=== PATIENT | female | born 1990 | race African-American/Black ===

== ENCOUNTER 2020-07-09 05:10 | Inpatient (IN) | payer OTHER, MEDICAID ==
[~2020-07-09] VITALS: Ht 162.6 cm; Wt 70.3 kg
[2020-07-09] MEDS ORDERED: SODIUM CHLORIDE 0.9% 1000ML BAG (SEPSIS BOLUS) IV ONE (06:15)
[2020-07-09] MEDS ORDERED: MORPHINE SULFATE 4 MG/ML CPJ (NOT FOR IM USE) IV ONE (06:30)
[2020-07-09 06:41] LABS: HEMATOCRIT. 38.2 % (36.0-48.0); HEMOGLOBIN. 12.4 g/dL (12.0-16.0); MEAN CORPUSCULAR HEMOGLOBIN 31.6 pg (28.0-32.0); MEAN CORPUSCULAR VOLUME 97.3 fL (81.0-99.0); MEAN PLATELET VOLUME 9.2 fl (7.4-10.4); PLATELET 86 x1000/uL (130-400); RED BLOOD CELL COUNT 3.93 mill/uL (4.2-5.4); RED CELL DISTRIBUTION WIDTH 15.6 % (11.6-14.6)
[2020-07-09 06:45] LABS: CHLORIDE 95 mEq/L (98-107)
[2020-07-09 06:48] LABS: INR 1.2; PROTHROMBIN TIME 12.4 sec (9.6-11.0)
[2020-07-09 07:18] LABS: PLATELET ESTIMATE DECREASED
[2020-07-09] MEDS ORDERED: INSULIN REGULAR (HUMULIN R) UD 100 UNITS/ML SYR IV ONE ×2 (07:30→09:15)
[2020-07-09 07:48] LABS: BG BASE EXCESS -18.3 mmol/L (-2.0-2.0); BG CARBOXYHEMOGLOBIN 0.3 % (0.5-1.5); BG DEOXYHEMOGLOBIN 1.1 % (0.0-5.0); BG HCO3 ACT 8.3 mmol/L (22.0-26.0); BG METHEMOGLOBIN 0.3 % (0.0-1.5); BG OXYGEN SATURATION 98.9 % (92.0-98.5); BG OXYHEMOGLOBIN 98.3 % (94.0-97.0); BG PCO2 22.7 mmHg (35.0-45.0); BG PH 7.181 (7.350-7.450); BG PO2 153.4 mmHg (75.0-100.0); BG SAMPLE SITE RIGHT BRACHIAL; BG TOTAL HEMOGLOBIN 11.8 g/dL (12.0-18.0); BG VENT MODE NASAL CANNULA
[2020-07-09] MEDS ORDERED: INSULIN REGULAR (HUMULIN R) 300UNITS/3ML IV SCH (08:10)
[2020-07-09] MEDS ORDERED: SODIUM CHLORIDE 0.9% 500 ML IV ONE (08:15)
[2020-07-09] MEDS ORDERED: SODIUM CHLORIDE 0.9% 1,000 ML IV ONE (09:15)
[2020-07-09] MEDS ORDERED: LEVOFLOXACIN 500MG PREMIX 100 ML IV ONE (09:30)
[2020-07-09] MEDS ORDERED: INSULIN REGULAR (HUMULIN R) 300UNITS/3ML IV ONE (09:37)
[2020-07-09] MEDS ORDERED: ONDANSETRON HCL 4MG/2ML INJ IV PRN (09:45)
[2020-07-09] MEDS ORDERED: CLONIDINE 0.1MG TABLET PO PRN (09:45)
[2020-07-09] MEDS ORDERED: SODIUM CHLORIDE 0.9% 1,000 ML IV SCH (09:45)
[2020-07-09] MEDS ORDERED: DIPHENHYDRAMINE 50MG/ML VIAL IV PRN (09:45)
[2020-07-09] MEDS ORDERED: LEVOFLOXACIN 500MG PREMIX 100 ML IV SCH (10:00)
[2020-07-09] MEDS ORDERED: ENOXAPARIN 40MG/0.4ML SYR SUBCUT SCH (11:30)
[2020-07-09] MEDS ORDERED: INSULIN REGULAR (DRIP) 100 UNITS in SODIUM CHLORIDE 0.9% 99 ML IV SCH (11:30)
[2020-07-09 11:31] LABS: BG BASE EXCESS -15.1 mmol/L (-2.0-2.0); BG CARBOXYHEMOGLOBIN 0.3 % (0.5-1.5); BG DEOXYHEMOGLOBIN 1.3 % (0.0-5.0); BG HCO3 ACT 11.4 mmol/L (22.0-26.0); BG METHEMOGLOBIN 0.3 % (0.0-1.5); BG OXYGEN SATURATION 98.7 % (92.0-98.5); BG OXYHEMOGLOBIN 98.1 % (94.0-97.0); BG PCO2 28.9 mmHg (35.0-45.0); BG PH 7.213 (7.350-7.450); BG PO2 148.4 mmHg (75.0-100.0); BG SAMPLE SITE RIGHT RADIAL; BG TOTAL HEMOGLOBIN 10.6 g/dL (12.0-18.0); BG VENT MODE NASAL CANNULA
[2020-07-09] MEDS ORDERED: DEXT 5%/0.9% NACL KCL 20MEQ/L 1,000 ML IV SCH (12:45)
[2020-07-09] MEDS: INSULIN REGULAR (DRIP) 100 UNITS in SODIUM CHLORIDE 0.9% 99 ML IV SCH (13:08)
[2020-07-09] MEDS: DEXT 5%/0.9% NACL KCL 20MEQ/L 1,000 ML IV SCH ×2 (13:22→17:00)
[2020-07-09] MEDS: ACETAMINOPHEN 325MG TABLET PO PRN (15:56)
[2020-07-09] MEDS ORDERED: DEXT 5%/0.45% NACL 1000ML 1,000 ML IV SCH (21:00)
[2020-07-09 21:38] VITALS: BP 132/111
[2020-07-09 22:04] VITALS: BP 119/99
[2020-07-09] MEDS: CHLORDIAZEPOXIDE 25MG CAPSULE PO SCH (22:22)
[2020-07-09] MEDS: MORPHINE SULFATE 2 MG/ML CPJ (NOT FOR IM USE) IV PRN (22:22)
[2020-07-09 22:34] VITALS: BP 104/16
[2020-07-09 23:04] VITALS: BP 120/77
[2020-07-09] MEDS: BLOOD SUGAR DIAGNOSTIC STRIP TEST SCH (23:11)
[2020-07-09 23:34] VITALS: BP 116/94
[2020-07-09 23:54] LABS: PHOSPHORUS < 0.1 mg/dL (2.5-4.9)
[2020-07-10] VITALS (98 sets, daily range): BP systolic 44–133; BP diastolic 21–114
[2020-07-10] MEDS: BLOOD SUGAR DIAGNOSTIC STRIP TEST SCH ×9 (00:04→23:00)
[2020-07-10] MEDS: DEXT 5%/0.9% NACL KCL 20MEQ/L 1,000 ML IV SCH ×3 (00:09→08:17)
[2020-07-10] MEDS: LORAZEPAM 2MG/ML CPJ IV PRN (01:28)
[2020-07-10] MEDS ORDERED: SODIUM PHOS,M-BASIC-D-BASIC 30 MM in DEXT 5% WATER 500 ML IV NR ×2 (01:30→22:30)
[2020-07-10 01:35] LABS: BG BASE EXCESS -17.6 mmol/L (-2.0-2.0); BG CARBOXYHEMOGLOBIN 0.4 % (0.5-1.5); BG DEOXYHEMOGLOBIN 13.4 % (0.0-5.0); BG FRACTION INSPIRED OXYGEN 44; BG HCO3 ACT 7.7 mmol/L (22.0-26.0); BG METHEMOGLOBIN 0.2 % (0.0-1.5); BG OXYGEN SATURATION 86.5 % (92.0-98.5); BG PCO2 18.5 mmHg (35.0-45.0); BG PH 7.237 (7.350-7.450); BG PO2 50.7 mmHg (75.0-100.0); BG TOTAL HEMOGLOBIN 12.2 g/dL (12.0-18.0); BG VENT MODE NASAL CANNULA
[2020-07-10] MEDS ORDERED: MAGNESIUM 4 G PREMIX 100 ML IV NR (02:00)
[2020-07-10] MEDS ORDERED: SODIUM BICARBONATE 8.4% 1 MEQ/ML 50ML SYR IV NR ×2 (03:00→11:45)
[2020-07-10] MEDS: MORPHINE SULFATE 2 MG/ML CPJ (NOT FOR IM USE) IV PRN (03:24)
[2020-07-10] MEDS: CHLORDIAZEPOXIDE 25MG CAPSULE PO SCH ×3 (05:04→21:56)
[2020-07-10 05:42] LABS: BASOPHILS % 0.5 % (0.0-2.0); EOSINOPHILS % 0.2 % (0.0-5.0); HEMATOCRIT. 35.3 % (36.0-48.0); HEMOGLOBIN. 11.7 g/dL (12.0-16.0); LYMPHOCYTES % 7.1 % (20.0-50.0); MEAN CORPUSCULAR HEMOGLOBIN 32.3 pg (28.0-32.0); MONOCYTES % 2.9 % (2.0-8.0); NEUTROPHILS % 89.3 % (40.0-76.0); PLATELET 61 x1000/uL (130-400); RED BLOOD CELL COUNT 3.64 mill/uL (4.2-5.4); RED CELL DISTRIBUTION WIDTH 16.2 % (11.6-14.6)
[2020-07-10 06:12] LABS: CREATINE KINASE MB FRACTION 6.3 ng/mL (0.5-3.6)
[2020-07-10] MEDS: INSULIN REGULAR (DRIP) 100 UNITS in SODIUM CHLORIDE 0.9% 99 ML IV SCH (06:56)
[2020-07-10 09:08] LABS: BG BASE EXCESS -17.8 mmol/L (-2.0-2.0); BG CARBOXYHEMOGLOBIN 0.5 % (0.5-1.5); BG FRACTION INSPIRED OXYGEN 99.8; BG HCO3 ACT 9.7 mmol/L (22.0-26.0); BG METHEMOGLOBIN 0.2 % (0.0-1.5); BG OXYGEN SATURATION 87.9 % (92.0-98.5); BG OXYHEMOGLOBIN 87.3 % (94.0-97.0); BG PCO2 28.7 mmHg (35.0-45.0); BG PH 7.147 (7.350-7.450); BG PO2 58.3 mmHg (75.0-100.0); BG SAMPLE SITE LEFT RADIAL; BG TOTAL HEMOGLOBIN 12.3 g/dL (12.0-18.0); BG VENT MODE MASK - NRB
[2020-07-10] MEDS: MIDAZOLAM HCL 100 MG in DEXT 5% WATER 80 ML IV PRN (10:00)
[2020-07-10] MEDS: FENTANYL CITRATE/PF 1,000 MCG in SODIUM CHLORIDE 0.9% 80 ML IV PRN ×2 (10:02→20:05)
[2020-07-10] MEDS: PHENYLEPHRINE 100 MG in DEXT 5% WATER 240 ML IV PRN (10:05)
[2020-07-10] MEDS: METRONIDAZOLE 500 MG PREMIX 100 ML IV SCH ×2 (11:26→21:57)
[2020-07-10] MEDS: SODIUM BICARBONATE 100 MEQ in DEXT 5%/0.2% NACL 1,000 ML IV SCH (11:27)
[2020-07-10 11:37] LABS: BG BASE EXCESS -20.2 mmol/L (-2.0-2.0); BG CARBOXYHEMOGLOBIN 0.4 % (0.5-1.5); BG DEOXYHEMOGLOBIN 7.3 % (0.0-5.0); BG FRACTION INSPIRED OXYGEN 100; BG HCO3 ACT 9.4 mmol/L (22.0-26.0); BG METHEMOGLOBIN 0.3 % (0.0-1.5); BG OXYGEN SATURATION 92.6 % (92.0-98.5); BG PCO2 35.5 mmHg (35.0-45.0); BG PH 7.043 (7.350-7.450); BG PO2 78.2 mmHg (75.0-100.0); BG SAMPLE SITE RIGHT RADIAL; BG TOTAL HEMOGLOBIN 12.6 g/dL (12.0-18.0); BG TOTAL RESPIRATORY RATE 24 b/min; BG VENT MODE VENT - AC
[2020-07-10] MEDS: IPRATROPIUM BROMIDE (0.02%) 0.5MG/2.5ML NEB HHN SCH ×3 (11:51→20:10)
[2020-07-10] MEDS: LEVOFLOXACIN 250MG PREMIX 50 ML IV SCH (12:51)
[2020-07-10] MEDS: AZTREONAM 1 G in DEXTROSE 5% WATER 50 ML IV SCH (16:09)
[2020-07-10 18:31] LABS: CREATINE KINASE MB FRACTION 5.4 ng/mL (0.5-3.6)
[2020-07-10 18:45] LABS: CORTISOL 35.3 ucg/dL
[2020-07-10 18:56] LABS: HEPATITIS B SURFACE ANTIGEN NEGATIVE
[2020-07-10 19:13] LABS: CHLORIDE 115 mEq/L (98-107)
[2020-07-10 19:25] LABS: HEPATITIS A AB IGM NEGATIVE (NEGATIVE)
[2020-07-10 19:37] LABS: PHOSPHORUS 0.9 mg/dL (2.5-4.9)
[2020-07-10 21:04] LABS: CLARITY URINE TURBID (CLEAR); COLOR URINE DARK YELLOW (YELLOW); KETONES URINE NEGATIVE (NEGATIVE); LEUKOCYTE ESTERASE URINE 2+ (NEGATIVE); NITRITE URINE POSITIVE (NEGATIVE); OCCULT BLOOD URINE 3+ (NEGATIVE); PH URINE 5.5 (4.5-8.0); PROTEIN URINE 3+ (NEGATIVE); SPECIFIC GRAVITY URINE 1.019 (1.005-1.030)
[2020-07-10 23:41] LABS: AMYLASE 57 IU/L (25-115)
[2020-07-10 23:45] LABS: CREATINE KINASE MB FRACTION 3.1 ng/mL (0.5-3.6)
[2020-07-11] VITALS (81 sets, daily range): BP systolic 82–130; BP diastolic 48–93
[2020-07-11] MEDS: FENTANYL CITRATE/PF 2,500 MCG in SODIUM CHLORIDE 0.9% 200 ML IV PRN ×2 (00:10→12:03)
[2020-07-11] MEDS: IPRATROPIUM BROMIDE (0.02%) 0.5MG/2.5ML NEB HHN SCH ×6 (00:52→20:05)
[2020-07-11 01:13] LABS: CHLORIDE 115 mEq/L (98-107)
[2020-07-11] MEDS: MIDAZOLAM HCL 100 MG in DEXT 5% WATER 80 ML IV PRN ×2 (01:21→12:05)
[2020-07-11] MEDS: PHENYLEPHRINE 100 MG in DEXT 5% WATER 240 ML IV PRN ×2 (01:31→13:35)
[2020-07-11] MEDS: SODIUM BICARBONATE 100 MEQ in DEXT 5%/0.2% NACL 1,000 ML IV SCH ×2 (02:29→18:18)
[2020-07-11] MEDS: BLOOD SUGAR DIAGNOSTIC STRIP TEST SCH ×5 (02:29→23:49)
[2020-07-11 05:00] LABS: BASOPHILS % 0.6 % (0.0-2.0); EOSINOPHILS % 0.7 % (0.0-5.0); HEMATOCRIT. 30.7 % (36.0-48.0); HEMOGLOBIN. 10.2 g/dL (12.0-16.0); LYMPHOCYTES % 14.5 % (20.0-50.0); MEAN CORPUSCULAR HEMOGLOBIN 31.4 pg (28.0-32.0); MEAN CORPUSCULAR VOLUME 94.8 fL (81.0-99.0); MEAN PLATELET VOLUME 10.5 fl (7.4-10.4); MONOCYTES % 4.5 % (2.0-8.0); NEUTROPHILS % 79.7 % (40.0-76.0); PLATELET 69 x1000/uL (130-400); RED BLOOD CELL COUNT 3.23 mill/uL (4.2-5.4); RED CELL DISTRIBUTION WIDTH 16.3 % (11.6-14.6)
[2020-07-11 05:04] LABS: CHLORIDE 112 mEq/L (98-107); INR 1.2; PARTIAL THROMBOPLASTIN TIME 30.7 sec (23.4-31.0); PROTHROMBIN TIME 12.8 sec (9.6-11.0)
[2020-07-11 05:13] LABS: PHOSPHORUS 3.1 mg/dL (2.5-4.9)
[2020-07-11 05:14] LABS: CREATINE KINASE 58 IU/L (26-192)
[2020-07-11 05:18] LABS: CREATINE KINASE MB FRACTION 2.1 ng/mL (0.5-3.6)
[2020-07-11 05:19] LABS: BETA HYDROXYBUTYRATE 0.1 mMol/L (0.0-0.3)
[2020-07-11] MEDS: AZTREONAM 1 G in DEXTROSE 5% WATER 50 ML IV SCH ×2 (05:32→18:17)
[2020-07-11] MEDS: METRONIDAZOLE 500 MG PREMIX 100 ML IV SCH ×3 (05:32→21:17)
[2020-07-11] MEDS: CHLORDIAZEPOXIDE 25MG CAPSULE PO SCH ×3 (05:32→21:17)
[2020-07-11] MEDS ORDERED: NOREPINEPHRINE 8MG/250ML PMX 250 ML IV PRN (08:30)
[2020-07-11] MEDS ORDERED: NOREPINEPHRINE 8 MG in DEXTROSE 5% WATER 250 ML IV PRN (08:45)
[2020-07-11] MEDS ORDERED: FOLIC ACID 1 MG, THIAMINE HCL 100 MG, MVI, ADULT NO.1 10 ML in DEXT 5%/0.45% NACL 1000M... IV ONE ×4 (09:00)
[2020-07-11] MEDS ORDERED: MAGNESIUM 2 G PREMIX 50 ML IV SCH (09:00)
[2020-07-11] MEDS ORDERED: NOREPINEPHRINE 8 MG in SODIUM CHLORIDE 0.9% 242 ML IV PRN ×2 (09:00)
[2020-07-11] MEDS ORDERED: DEXTROSE 50% WATER 50ML SYRINGE IV PRN (09:15)
[2020-07-11 09:50] LABS: BG BASE EXCESS -8.3 mmol/L (-2.0-2.0); BG CARBOXYHEMOGLOBIN 0.4 % (0.5-1.5); BG DEOXYHEMOGLOBIN 0.7 % (0.0-5.0); BG FRACTION INSPIRED OXYGEN 100; BG HCO3 ACT 17.7 mmol/L (22.0-26.0); BG METHEMOGLOBIN 0.3 % (0.0-1.5); BG OXYGEN SATURATION 99.3 % (92.0-98.5); BG OXYHEMOGLOBIN 98.6 % (94.0-97.0); BG PCO2 37.9 mmHg (35.0-45.0); BG PH 7.286 (7.350-7.450); BG PO2 199.1 mmHg (75.0-100.0); BG SAMPLE SITE LEFT RADIAL; BG TOTAL RESPIRATORY RATE 30 b/min; BG VENT MODE VENT - AC
[2020-07-11] MEDS: LEVOFLOXACIN 250MG PREMIX 50 ML IV SCH (11:24)
[2020-07-11] MEDS: INSULIN LISPRO 100 UNITS/ML SUBCUT SCH ×3 (12:00→23:49)
[2020-07-11] MEDS: ACETAMINOPHEN 325MG TABLET PO PRN (12:05)
[2020-07-11] MEDS: LACTULOSE 20G/30ML UDC PO SCH ×2 (13:45→21:17)
[2020-07-11 18:39] LABS: CREATINE KINASE MB FRACTION 1.5 ng/mL (0.5-3.6)
[2020-07-11 23:22] LABS: CREATINE KINASE MB FRACTION 1.6 ng/mL (0.5-3.6)
[2020-07-12] VITALS (79 sets, daily range): BP systolic 70–144; BP diastolic 45–96
[2020-07-12] MEDS: IPRATROPIUM BROMIDE (0.02%) 0.5MG/2.5ML NEB HHN SCH ×6 (00:12→20:42)
[2020-07-12] MEDS: MIDAZOLAM HCL 100 MG in DEXT 5% WATER 80 ML IV PRN ×2 (00:47→13:24)
[2020-07-12] MEDS: PHENYLEPHRINE 100 MG in DEXT 5% WATER 240 ML IV PRN (02:04)
[2020-07-12] MEDS: FENTANYL CITRATE/PF 2,500 MCG in SODIUM CHLORIDE 0.9% 200 ML IV PRN ×2 (02:25→03:09)
[2020-07-12 04:59] LABS: HEMATOCRIT. 27.3 % (36.0-48.0); HEMOGLOBIN. 9.3 g/dL (12.0-16.0); MEAN CORPUSCULAR HEMOGLOBIN 31.4 pg (28.0-32.0); MEAN CORPUSCULAR VOLUME 92.7 fL (81.0-99.0); MEAN PLATELET VOLUME 9.6 fl (7.4-10.4); PLATELET 61 x1000/uL (130-400); RED BLOOD CELL COUNT 2.95 mill/uL (4.2-5.4); RED CELL DISTRIBUTION WIDTH 16.5 % (11.6-14.6)
[2020-07-12 05:13] LABS: PHOSPHORUS 1.9 mg/dL (2.5-4.9)
[2020-07-12 05:16] LABS: CREATINE KINASE 85 IU/L (26-192)
[2020-07-12 05:37] LABS: CHLORIDE 101 mEq/L (98-107)
[2020-07-12 05:43] LABS: CREATINE KINASE MB FRACTION 1.7 ng/mL (0.5-3.6)
[2020-07-12] MEDS: AZTREONAM 1 G in DEXTROSE 5% WATER 50 ML IV SCH ×2 (05:53→17:30)
[2020-07-12] MEDS: METRONIDAZOLE 500 MG PREMIX 100 ML IV SCH ×3 (05:54→21:19)
[2020-07-12] MEDS: BLOOD SUGAR DIAGNOSTIC STRIP TEST SCH ×4 (05:54→23:51)
[2020-07-12] MEDS: LACTULOSE 20G/30ML UDC PO SCH ×3 (05:54→21:21)
[2020-07-12] MEDS: CHLORDIAZEPOXIDE 25MG CAPSULE PO SCH ×3 (05:54→21:19)
[2020-07-12] MEDS: INSULIN LISPRO 100 UNITS/ML SUBCUT SCH ×4 (05:54→23:51)
[2020-07-12 07:13] LABS: HIV SCREEN 4G Non Reactive (Non Reactive)
[2020-07-12 08:11] LABS: BG BASE EXCESS -0.6 mmol/L (-2.0-2.0); BG CARBOXYHEMOGLOBIN 0.2 % (0.5-1.5); BG DEOXYHEMOGLOBIN 0.8 % (0.0-5.0); BG HCO3 ACT 22.3 mmol/L (22.0-26.0); BG METHEMOGLOBIN 0.2 % (0.0-1.5); BG OXYGEN SATURATION 99.2 % (92.0-98.5); BG OXYHEMOGLOBIN 98.8 % (94.0-97.0); BG PCO2 29.8 mmHg (35.0-45.0); BG PH 7.491 (7.350-7.450); BG PO2 225.4 mmHg (75.0-100.0); BG SAMPLE SITE RIGHT RADIAL; BG TOTAL HEMOGLOBIN 9.3 g/dL (12.0-18.0); BG VENT MODE VENT - AC
[2020-07-12 10:08] LABS: PLATELET ESTIMATE DECREASED
[2020-07-12] MEDS: LEVOFLOXACIN 250MG PREMIX 50 ML IV SCH (11:28)
[2020-07-12] MEDS ORDERED: POTASSIUM PHOS,M-BASIC-D-BASIC 20 MMOL in DEXT 5% WATER 243.3333 ML IV NR (12:00)
[2020-07-12] MEDS ORDERED: FOLIC ACID 1 MG, THIAMINE HCL 100 MG, MVI, ADULT NO.1 10 ML in DEXT 5%/0.45% NACL 1000M... IV SCH ×4 (12:00)
[2020-07-12 13:39] LABS: BG CARBOXYHEMOGLOBIN 0.4 % (0.5-1.5); BG DEOXYHEMOGLOBIN 4.5 % (0.0-5.0); BG FRACTION INSPIRED OXYGEN 40; BG HCO3 ACT 25.6 mmol/L (22.0-26.0); BG METHEMOGLOBIN 0.3 % (0.0-1.5); BG OXYGEN SATURATION 95.5 % (92.0-98.5); BG OXYHEMOGLOBIN 94.8 % (94.0-97.0); BG PCO2 40.6 mmHg (35.0-45.0); BG PH 7.418 (7.350-7.450); BG SAMPLE SITE LEFT RADIAL; BG TOTAL HEMOGLOBIN 8.5 g/dL (12.0-18.0); BG TOTAL RESPIRATORY RATE 22 b/min; BG VENT MODE VENT - AC
[2020-07-12 15:10] LABS: ANTI-NUCLEAR ANTIBODIES DIRECT Negative (Negative)
[2020-07-12 17:54] LABS: CREATINE KINASE MB FRACTION 1.6 ng/mL (0.5-3.6)
[2020-07-12] MEDS: FAMOTIDINE 20MG/2ML VIAL IV SCH (20:48)
[2020-07-13] VITALS (80 sets, daily range): BP systolic 95–165; BP diastolic 30–102
[2020-07-13] MEDS: IPRATROPIUM BROMIDE (0.02%) 0.5MG/2.5ML NEB HHN SCH ×6 (00:11→19:40)
[2020-07-13 01:18] LABS: CREATINE KINASE MB FRACTION 1.2 ng/mL (0.5-3.6)
[2020-07-13] MEDS: FENTANYL CITRATE/PF 2,500 MCG in SODIUM CHLORIDE 0.9% 200 ML IV PRN (03:23)
[2020-07-13] MEDS: METRONIDAZOLE 500 MG PREMIX 100 ML IV SCH ×3 (05:21→21:08)
[2020-07-13] MEDS: CHLORDIAZEPOXIDE 25MG CAPSULE PO SCH ×3 (05:21→21:08)
[2020-07-13] MEDS: AZTREONAM 1 G in DEXTROSE 5% WATER 50 ML IV SCH ×2 (05:21→18:07)
[2020-07-13] MEDS: INSULIN LISPRO 100 UNITS/ML SUBCUT SCH ×3 (05:22→18:00)
[2020-07-13] MEDS: BLOOD SUGAR DIAGNOSTIC STRIP TEST SCH ×3 (05:22→18:02)
[2020-07-13] MEDS: LACTULOSE 20G/30ML UDC PO SCH (05:24)
[2020-07-13 05:44] LABS: HEMATOCRIT. 24.6 % (36.0-48.0); HEMOGLOBIN. 8.6 g/dL (12.0-16.0); MEAN CORPUSCULAR HEMOGLOBIN 32.8 pg (28.0-32.0); MEAN CORPUSCULAR VOLUME 93.1 fL (81.0-99.0); MEAN PLATELET VOLUME 9.4 fl (7.4-10.4); PLATELET 62 x1000/uL (130-400); RED BLOOD CELL COUNT 2.64 mill/uL (4.2-5.4); RED CELL DISTRIBUTION WIDTH 16.4 % (11.6-14.6)
[2020-07-13 06:18] LABS: CHLORIDE 100 mEq/L (98-107)
[2020-07-13 06:27] LABS: PHOSPHORUS 2.6 mg/dL (2.5-4.9)
[2020-07-13 06:32] LABS: CREATINE KINASE MB FRACTION < 1.0 ng/mL (0.5-3.6)
[2020-07-13 06:33] LABS: CREATINE KINASE 159 IU/L (26-192); TOTAL IRON BINDING CAPACITY 132 ug/dL (250-450)
[2020-07-13] MEDS: PHENYLEPHRINE 100 MG in DEXT 5% WATER 240 ML IV PRN (06:46)
[2020-07-13 06:59] LABS: VITAMIN B12 SERUM > 2000.0 pg/mL (211-911)
[2020-07-13 08:18] LABS: FERRITIN 784 ng/mL (10-291)
[2020-07-13] MEDS ORDERED: ENOXAPARIN 30MG/0.3ML SYR SUBCUT SCH (09:00)
[2020-07-13 09:06] LABS: BG BASE EXCESS -0.7 mmol/L (-2.0-2.0); BG CARBOXYHEMOGLOBIN 0.7 % (0.5-1.5); BG DEOXYHEMOGLOBIN 8.9 % (0.0-5.0); BG FRACTION INSPIRED OXYGEN 40; BG METHEMOGLOBIN 0.5 % (0.0-1.5); BG OXYHEMOGLOBIN 89.9 % (94.0-97.0); BG PCO2 39.6 mmHg (35.0-45.0); BG PO2 64.8 mmHg (75.0-100.0); BG SAMPLE SITE RIGHT RADIAL; BG TOTAL HEMOGLOBIN 8.9 g/dL (12.0-18.0); BG VENT MODE VENT - AC
[2020-07-13] MEDS: MIDAZOLAM HCL 100 MG in DEXT 5% WATER 80 ML IV PRN (09:59)
[2020-07-13] MEDS ORDERED: MAGNESIUM 2 G PREMIX 50 ML IV NR (10:00)
[2020-07-13] MEDS: FOLIC ACID/VITAMIN B COMP W-C TABLET PO SCH (10:48)
[2020-07-13] MEDS: THIAMINE HCL 100MG TABLET PO SCH (10:48)
[2020-07-13 12:32] LABS: PLATELET ESTIMATE DECREASED
[2020-07-13 13:18] LABS: D-DIMER 2.03 mg/L FEU (<0.50)
[2020-07-13 21:00] LABS: HEMATOCRIT 22.5 % (36.0-48.0); HEMOGLOBIN 7.6 g/dL (12.0-16.0); MEAN CORPUSCULAR HEMOGLOBIN 31.5 pg (28.0-32.0); MEAN CORPUSCULAR VOLUME 93.6 fL (81.0-99.0); PLATELET 66 x1000/uL (130-400); RED BLOOD CELL COUNT 2.41 mill/uL (4.2-5.4); RED CELL DISTRIBUTION WIDTH 16.6 % (11.6-14.6)
[2020-07-13] MEDS: FAMOTIDINE 20MG/2ML VIAL IV SCH (21:08)
[2020-07-13 21:23] LABS: CREATINE KINASE 95 IU/L (26-192); CREATINE KINASE MB FRACTION < 1.0 ng/mL (0.5-3.6)
[2020-07-14] VITALS (92 sets, daily range): BP systolic 98–142; BP diastolic 55–85
[2020-07-14] MEDS: MIDAZOLAM HCL 100 MG in DEXT 5% WATER 80 ML IV PRN ×2 (01:32→15:49)
[2020-07-14] MEDS: IPRATROPIUM BROMIDE (0.02%) 0.5MG/2.5ML NEB HHN SCH ×6 (03:55→20:19)
[2020-07-14 04:55] LABS: HEMATOCRIT. 23.2 % (36.0-48.0); MEAN CORPUSCULAR HEMOGLOBIN 31.8 pg (28.0-32.0); MEAN CORPUSCULAR VOLUME 92.6 fL (81.0-99.0); MEAN PLATELET VOLUME 10.4 fl (7.4-10.4); PLATELET 82 x1000/uL (130-400); RED BLOOD CELL COUNT 2.51 mill/uL (4.2-5.4); RED CELL DISTRIBUTION WIDTH 16.5 % (11.6-14.6)
[2020-07-14] MEDS: AZTREONAM 1 G in DEXTROSE 5% WATER 50 ML IV SCH ×2 (05:07→18:21)
[2020-07-14] MEDS: BLOOD SUGAR DIAGNOSTIC STRIP TEST SCH ×5 (05:07→23:51)
[2020-07-14 05:19] LABS: CHLORIDE 104 mEq/L (98-107)
[2020-07-14 05:26] LABS: PHOSPHORUS 1.6 mg/dL (2.5-4.9)
[2020-07-14 05:28] LABS: CREATINE KINASE 75 IU/L (26-192)
[2020-07-14 05:31] LABS: CREATINE KINASE MB FRACTION < 1.0 ng/mL (0.5-3.6)
[2020-07-14] MEDS: METRONIDAZOLE 500 MG PREMIX 100 ML IV SCH ×3 (05:37→21:00)
[2020-07-14] MEDS: CHLORDIAZEPOXIDE 25MG CAPSULE PO SCH ×3 (05:37→21:00)
[2020-07-14] MEDS: INSULIN LISPRO 100 UNITS/ML SUBCUT SCH ×5 (05:37→23:51)
[2020-07-14 07:51] LABS: PLATELET ESTIMATE SLIGHTLY DECREASED
[2020-07-14 08:02] LABS: BG BASE EXCESS 3.1 mmol/L (-2.0-2.0); BG CARBOXYHEMOGLOBIN 0.3 % (0.5-1.5); BG DEOXYHEMOGLOBIN 0.7 % (0.0-5.0); BG FRACTION INSPIRED OXYGEN 50; BG HCO3 ACT 27.3 mmol/L (22.0-26.0); BG METHEMOGLOBIN 0.3 % (0.0-1.5); BG OXYGEN SATURATION 99.3 % (92.0-98.5); BG OXYHEMOGLOBIN 98.7 % (94.0-97.0); BG PCO2 40.4 mmHg (35.0-45.0); BG PH 7.448 (7.350-7.450); BG SAMPLE SITE RIGHT RADIAL; BG TOTAL HEMOGLOBIN 8.2 g/dL (12.0-18.0); BG VENT MODE VENT - AC
[2020-07-14] MEDS: FENTANYL CITRATE/PF 2,500 MCG in SODIUM CHLORIDE 0.9% 200 ML IV PRN (08:03)
[2020-07-14] MEDS ORDERED: LACTULOSE 20G/30ML UDC PO SCH (09:00)
[2020-07-14] MEDS: FOLIC ACID/VITAMIN B COMP W-C TABLET PO SCH (09:08)
[2020-07-14] MEDS: FOLIC ACID 1MG TABLET PO SCH (09:08)
[2020-07-14] MEDS: THIAMINE HCL 100MG TABLET PO SCH (09:08)
[2020-07-14] MEDS ORDERED: LEVOFLOXACIN 250MG PREMIX 50 ML IV SCH (11:00)
[2020-07-14] MEDS ORDERED: POTASSIUM PHOS,M-BASIC-D-BASIC 30 MMOL in SODIUM CHLORIDE 0.9% 500 ML IV NR (12:30)
[2020-07-14] MEDS: LORAZEPAM 2MG/ML CPJ IV PRN (15:38)
[2020-07-14 17:10] LABS: ANTI-MYELOPEROXIDASE AB < 9.0 U/mL (0.0-9.0); ANTI-PROTEINASE 3 ABS < 3.5 U/mL (0.0-3.5)
[2020-07-14 18:26] LABS: CREATINE KINASE 34 IU/L (26-192)
[2020-07-14 18:27] LABS: CREATINE KINASE MB FRACTION < 1.0 ng/mL (0.5-3.6)
[2020-07-14] MEDS: FAMOTIDINE 20MG/2ML VIAL IV SCH (20:45)
[2020-07-14 23:18] LABS: CREATINE KINASE 41 IU/L (26-192)
[2020-07-14 23:19] LABS: CREATINE KINASE MB FRACTION < 1.0 ng/mL (0.5-3.6)
[2020-07-15] VITALS (63 sets, daily range): BP systolic 101–128; BP diastolic 62–95
[2020-07-15] MEDS: IPRATROPIUM BROMIDE (0.02%) 0.5MG/2.5ML NEB HHN SCH ×5 (00:36→20:20)
[2020-07-15] MEDS: MIDAZOLAM HCL 100 MG in DEXT 5% WATER 80 ML IV PRN (01:58)
[2020-07-15 05:01] LABS: HEMATOCRIT. 21.3 % (36.0-48.0); HEMOGLOBIN. 7.3 g/dL (12.0-16.0); MEAN CORPUSCULAR HEMOGLOBIN 31.8 pg (28.0-32.0); MEAN CORPUSCULAR VOLUME 93.2 fL (81.0-99.0); MEAN PLATELET VOLUME 9.8 fl (7.4-10.4); PLATELET 129 x1000/uL (130-400); RED BLOOD CELL COUNT 2.28 mill/uL (4.2-5.4); RED CELL DISTRIBUTION WIDTH 16.7 % (11.6-14.6)
[2020-07-15 05:17] LABS: PHOSPHORUS 2.1 mg/dL (2.5-4.9)
[2020-07-15] MEDS: AZTREONAM 1 G in DEXTROSE 5% WATER 50 ML IV SCH (05:39)
[2020-07-15] MEDS: INSULIN LISPRO 100 UNITS/ML SUBCUT SCH ×4 (06:00→23:25)
[2020-07-15] MEDS: METRONIDAZOLE 500 MG PREMIX 100 ML IV SCH (06:29)
[2020-07-15] MEDS: BLOOD SUGAR DIAGNOSTIC STRIP TEST SCH ×4 (06:30→23:25)
[2020-07-15 07:47] LABS: PLATELET ESTIMATE NORMAL
[2020-07-15] MEDS: FOLIC ACID/VITAMIN B COMP W-C TABLET PO SCH (08:35)
[2020-07-15] MEDS: FOLIC ACID 1MG TABLET PO SCH (08:35)
[2020-07-15] MEDS: THIAMINE HCL 100MG TABLET PO SCH (08:39)
[2020-07-15 08:46] LABS: BG BASE EXCESS 1.6 mmol/L (-2.0-2.0); BG CARBOXYHEMOGLOBIN 0.6 % (0.5-1.5); BG DEOXYHEMOGLOBIN 0.7 % (0.0-5.0); BG FRACTION INSPIRED OXYGEN 40; BG METHEMOGLOBIN 0.4 % (0.0-1.5); BG OXYGEN SATURATION 99.3 % (92.0-98.5); BG OXYHEMOGLOBIN 98.3 % (94.0-97.0); BG PCO2 34.1 mmHg (35.0-45.0); BG PH 7.483 (7.350-7.450); BG PO2 166.2 mmHg (75.0-100.0); BG SAMPLE SITE RIGHT RADIAL; BG TOTAL HEMOGLOBIN 7.6 g/dL (12.0-18.0); BG VENT MODE VENT - AC
[2020-07-15 10:08] LABS: GLOMERULAR BASEMENT MEMB AB 2 units (0-20)
[2020-07-15] MEDS: FENTANYL CITRATE/PF 2,500 MCG in SODIUM CHLORIDE 0.9% 200 ML IV PRN (10:45)
[2020-07-15] MEDS ORDERED: POTASSIUM PHOS,M-BASIC-D-BASIC 20 MMOL in DEXT 5% WATER 243.3333 ML IV NR (11:00)
[2020-07-15 14:11] LABS: ATYPICAL P-ANCA <1:20 titer (Neg:<1:20); CYTOPLASMIC C-ANCA <1:20 titer (Neg:<1:20); PERINUCLEAR P-ANCA <1:20 titer (Neg:<1:20)
[2020-07-15 15:35] LABS: BG CARBOXYHEMOGLOBIN 0.2 % (0.5-1.5); BG DEOXYHEMOGLOBIN 4.1 % (0.0-5.0); BG FRACTION INSPIRED OXYGEN 40; BG HCO3 ACT 25.5 mmol/L (22.0-26.0); BG METHEMOGLOBIN 0.4 % (0.0-1.5); BG OXYGEN SATURATION 95.9 % (92.0-98.5); BG OXYHEMOGLOBIN 95.3 % (94.0-97.0); BG PCO2 51.4 mmHg (35.0-45.0); BG PH 7.313 (7.350-7.450); BG PO2 90.2 mmHg (75.0-100.0); BG SAMPLE SITE RIGHT RADIAL; BG TOTAL RESPIRATORY RATE 28 b/min; BG VENT MODE VENT - CPAP
[2020-07-15] MEDS: FAMOTIDINE 20MG/2ML VIAL IV SCH (20:13)
[2020-07-15] MEDS: ACETAMINOPHEN 325MG TABLET PO PRN (22:13)
== END 2020-07-16 00:10 | disposition short-term general hospital (02) | DRG 870 ==
LOC: ER 05:10 → MICUSO 08:11 → EDBEDREQ 08:15 → EDBEDREQSVC 13:26 → CANRESERV 19:44 → ENRESERV 19:44 → MICUSO 07-11 12:45
PROVIDERS: ADMIT Internal Medicine; ATTEND Internal Medicine
PROC: 5A1955Z Respiratory Ventilation, Greater than 96 Consecutive Hours (ICD-10-PCS; principal; 2020-07-10)
PROC: 0BH17EZ Insertion of Endotracheal Airway into Trachea, Via Natural or Artificial Opening (ICD-10-PCS; 2020-07-10)
PROC: 02HV33Z Insertion of Infusion Device into Superior Vena Cava, Percutaneous Approach (ICD-10-PCS; 2020-07-11)
PROC: 05HM33Z Insertion of Infusion Device into Right Internal Jugular Vein, Percutaneous Approach (ICD-10-PCS; 2020-07-11)
PROC: B543ZZA Ultrasonography of Right Jugular Veins, Guidance (ICD-10-PCS; 2020-07-11)
PROC: 5A1D70Z Performance of Urinary Filtration, Intermittent, Less than 6 Hours Per Day (ICD-10-PCS; 2020-07-15)
DX: A41.50 Gram-negative sepsis, unspecified (principal); E11.10 Type 2 diabetes mellitus with ketoacidosis without coma; G92 Toxic encephalopathy; I50.31 Acute diastolic (congestive) heart failure; R65.21 Severe sepsis with septic shock; J18.9 Pneumonia, unspecified organism; J96.01 Acute respiratory failure with hypoxia; K72.00 Acute and subacute hepatic failure without coma; E44.0 Moderate protein-calorie malnutrition; E87.1 Hypo-osmolality and hyponatremia; N17.9 Acute kidney failure, unspecified; N39.0 Urinary tract infection, site not specified; I47.1 Supraventricular tachycardia; D68.9 Coagulation defect, unspecified; D69.6 Thrombocytopenia, unspecified; E83.42 Hypomagnesemia; E87.5 Hyperkalemia; E83.39 Other disorders of phosphorus metabolism; D64.9 Anemia, unspecified; E87.6 Hypokalemia; F10.10 Alcohol abuse, uncomplicated; F17.210 Nicotine dependence, cigarettes, uncomplicated; I11.0 Hypertensive heart disease with heart failure; J45.909 Unspecified asthma, uncomplicated; K29.70 Gastritis, unspecified, without bleeding; K76.0 Fatty (change of) liver, not elsewhere classified; Z20.828 Contact with and (suspected) exposure to other viral communicable diseases; Z78.1 Physical restraint status; Z88.0 Allergy status to penicillin; Z99.2 Dependence on renal dialysis; Z79.899 Other long term (current) drug therapy
CPT/HCPCS: 31500; 36415; 36600; 71045; 74022; 76700; 76937; 80048; 80053; 80061; 80076; 80307; 80329; 81003; 82010; 82140; 82150; 82248; 82270; 82375; 82533; 82550; 82553; 82607; 82728; 82746; 82805; 82962; 83036; 83520; 83540; 83550; 83605; 83735; 83930; 84100; 84145; 84443; 84484; 85025; 85027; 85044; 85379; 85384; 86022; 86038; 86256; 86431; 86705; 86709; 86803; 87077; 87186; 87340; 87389; 87635; 93005; 93306; 94002; 94003; 94640; 96365; 99291; C1752; J1200; J1650; J1815; J1956; J2060; J2250; J2270; J2370; J3010; J3411; J3475; J3480; J3490; J7030; J7040; J7042; J7050; J7060; A4315

== ENCOUNTER 2022-08-05 15:29 | Inpatient (IN) | payer MEDICAID, OTHER ==
[~2022-08-05] VITALS: Ht 165.1 cm; Wt 55.8 kg
[2022-08-05] MEDS ORDERED: IPRATROPIUM BROMIDE (0.02%) 0.5MG/2.5ML NEB HHN STA (16:10)
[2022-08-05] MEDS ORDERED: ALBUTEROL (0.083%) 2.5MG/3ML NEB HHN STA (16:10)
[2022-08-05 17:17] LABS: HEMATOCRIT. 38.5 % (36.0-48.0); HEMOGLOBIN. 11.9 g/dL (12.0-16.0); MEAN CORPUSCULAR HEMOGLOBIN 33.9 pg (28.0-32.0); MEAN CORPUSCULAR VOLUME 110.2 fL (81.0-99.0); PLATELET 323 x1000/uL (130-400); RED BLOOD CELL COUNT 3.49 mill/uL (4.2-5.4); RED CELL DISTRIBUTION WIDTH 17.4 % (11.6-14.6)
[2022-08-05 17:26] LABS: CHLORIDE 105 mEq/L (98-107)
[2022-08-05 17:48] LABS: HCG SCREEN NEGATIVE
[2022-08-05 17:51] LABS: ETHANOL BLOOD 166 mg/dL
[2022-08-05] MEDS ORDERED: IOHEXOL-350 100 ML BOTTLE ONE (18:08)
[2022-08-05 18:30] LABS: CLARITY URINE CLOUDY (CLEAR); COLOR URINE YELLOW (YELLOW); KETONES URINE 2+ (NEGATIVE); LEUKOCYTE ESTERASE URINE NEGATIVE (NEGATIVE); NITRITE URINE NEGATIVE (NEGATIVE); OCCULT BLOOD URINE TRACE (NEGATIVE); PROTEIN URINE 2+ (NEGATIVE); SPECIFIC GRAVITY URINE 1.013 (1.005-1.030); UROBILINOGEN URINE 0.2 E.U./dL (0.2-1.0)
[2022-08-05] MEDS ORDERED: ONDANSETRON HCL 4MG/2ML INJ IV ONE (18:30)
[2022-08-05] MEDS ORDERED: MORPHINE SULFATE 4 MG/ML CPJ (NOT FOR IM USE) IV ONE (18:30)
[2022-08-05 18:44] LABS: *AMPHETAMINES SCREEN URINE NEGATIVE (NEGATIVE); *BARBITURATES SCREEN URINE NEGATIVE (NEGATIVE); *BENZODIAZEPINES SCREEN URINE NEGATIVE (NEGATIVE); *COCAINE SCREEN URINE NEGATIVE (NEGATIVE); CANNABINOID URINE SCREEN NEGATIVE (NEGATIVE); METHADONE URINE SCREEN NEGATIVE (NEGATIVE); OPIATES URINE SCREEN NEGATIVE (NEGATIVE); PHENCYCLIDINE URINE SCREEN NEGATIVE (NEGATIVE)
[2022-08-05 18:46] LABS: PLATELET ESTIMATE NORMAL
[2022-08-05] MEDS ORDERED: SODIUM CHLORIDE 0.9% 1,000 ML IV ONE (19:00)
[2022-08-05 19:16] LABS: BG BASE EXCESS -26.8 mmol/L (-2.0-2.0); BG CARBOXYHEMOGLOBIN 0.5 % (0.5-1.5); BG DEOXYHEMOGLOBIN 4.2 % (0.0-5.0); BG FRACTION INSPIRED OXYGEN 21; BG HCO3 ACT 4.1 mmol/L (22.0-26.0); BG METHEMOGLOBIN 0.7 % (0.0-1.5); BG OXYGEN SATURATION 95.7 % (92.0-98.5); BG OXYHEMOGLOBIN 94.6 % (94.0-97.0); BG PCO2 19.5 mmHg (35.0-45.0); BG PH 6.937 (7.350-7.450); BG PO2 103.3 mmHg (75.0-100.0); BG VENT MODE ROOM AIR
[2022-08-05] MEDS ORDERED: FOLIC ACID 1 MG, THIAMINE HCL 100 MG, MVI, ADULT NO.1 10 ML in DEXTROSE 5% WATER 1,000 ML IV ONE ×4 (19:30)
[2022-08-05] MEDS ORDERED: SODIUM BICARBONATE 8.4% 1 MEQ/ML 50ML SYR IV ONE (19:30)
[2022-08-05] MEDS ORDERED: SODIUM BICARBONATE 8.4% 1 MEQ/ML 50ML SYR IV NR (21:45)
[2022-08-05 22:00] LABS: BG BASE EXCESS -18.3 mmol/L (-2.0-2.0); BG CARBOXYHEMOGLOBIN 0.3 % (0.5-1.5); BG DEOXYHEMOGLOBIN 3.8 % (0.0-5.0); BG FRACTION INSPIRED OXYGEN 21; BG HCO3 ACT 8.7 mmol/L (22.0-26.0); BG METHEMOGLOBIN 0.6 % (0.0-1.5); BG OXYGEN SATURATION 96.2 % (92.0-98.5); BG OXYHEMOGLOBIN 95.3 % (94.0-97.0); BG PCO2 24.7 mmHg (35.0-45.0); BG PH 7.165 (7.350-7.450); BG PO2 89.3 mmHg (75.0-100.0); BG SAMPLE SITE RIGHT RADIAL; BG TOTAL HEMOGLOBIN 11.3 g/dL (12.0-18.0); BG VENT MODE ROOM AIR
[2022-08-06] MEDS ORDERED: ONDANSETRON HCL 4MG/2ML INJ IV ONE
[2022-08-06] MEDS ORDERED: MORPHINE SULFATE 4 MG/ML CPJ (NOT FOR IM USE) IV ONE
[2022-08-06] MEDS: OXYCODONE HCL/ACETAMINOPHEN 5/325MG TABLET PO PRN ×2 (08:41→22:18)
[2022-08-06 10:00] VITALS: BP 111/71
[2022-08-06] MEDS ORDERED: ACETAMINOPHEN 325MG TABLET PO PRN (10:00)
[2022-08-06] MEDS ORDERED: SODIUM CHLORIDE 0.9% 1,000 ML IV SCH (10:00)
[2022-08-06] MEDS ORDERED: ONDANSETRON HCL 4MG/2ML INJ IV PRN (10:00)
[2022-08-06] MEDS ORDERED: IPRATROPIUM/ALBUTEROL 0.5-3(2.5)MG/3ML NEB HHN PRN (10:00)
[2022-08-06] MEDS ORDERED: CLONIDINE 0.1MG TABLET PO PRN (10:00)
[2022-08-06] MEDS ORDERED: NALOXONE HCL 0.4MG/ML VIAL IV PRN (10:15)
[2022-08-06] MEDS ORDERED: SODIUM BICARBONATE 8.4% 1 MEQ/ML 50ML SYR IV NR (11:00)
[2022-08-06 12:00] VITALS: BP 141/57
[2022-08-06] MEDS ORDERED: SODIUM BICARBONATE 150 MEQ in DEXTROSE 5% WATER 1,000 ML IV SCH (12:30)
[2022-08-06] MEDS: MORPHINE SULFATE 2 MG/ML CPJ (NOT FOR IM USE) IV PRN ×2 (13:01→17:10)
[2022-08-06] MEDS: LEVOFLOXACIN 750MG PREMIX 150 ML IV SCH (13:33)
[2022-08-06] MEDS: CHLORDIAZEPOXIDE 25MG CAPSULE PO SCH ×2 (13:33→22:18)
[2022-08-06 15:52] VITALS: BP 111/77
[2022-08-06 16:00] VITALS: BP 101/71
[2022-08-06 16:56] LABS: BASOPHILS % 0.2 % (0.0-2.0); EOSINOPHILS % 0.3 % (0.0-5.0); HEMATOCRIT. 28.3 % (36.0-48.0); HEMOGLOBIN. 9.6 g/dL (12.0-16.0); LYMPHOCYTES % 16.6 % (20.0-50.0); MEAN CORPUSCULAR HEMOGLOBIN 33.8 pg (28.0-32.0); MEAN PLATELET VOLUME 7.8 fl (7.4-10.4); MONOCYTES % 5.1 % (2.0-8.0); NEUTROPHILS % 77.8 % (40.0-76.0); PLATELET 158 x1000/uL (130-400); RED BLOOD CELL COUNT 2.83 mill/uL (4.2-5.4); RED CELL DISTRIBUTION WIDTH 16.5 % (11.6-14.6)
[2022-08-06 17:13] LABS: CHLORIDE 96 mEq/L (98-107)
[2022-08-06] MEDS ORDERED: SODIUM PHOS,M-BASIC-D-BASIC 30 MM in DEXT 5% WATER 500 ML IV ONE (19:15)
[2022-08-06] MEDS ORDERED: POTASSIUM-SODIUM PHOSPHATE POWDER PACKET PO SCH (19:15)
[2022-08-06] MEDS: POTASSIUM-SODIUM PHOSPHATE POWDER PACKET PO SCH (19:36)
[2022-08-06 20:00] VITALS: BP 109/73
[2022-08-06] MEDS ORDERED: SODIUM PHOS,M-BASIC-D-BASIC 30 MM in DEXT 5% WATER 500 ML IV NR (20:30)
[2022-08-06] MEDS: DIPHENHYDRAMINE 50MG/ML VIAL IV PRN (22:18)
[2022-08-06] MEDS: SODIUM CHLORIDE 0.9% 1,000 ML IV SCH (23:34)
[2022-08-07] VITALS (8 sets, daily range): BP systolic 104–129; BP diastolic 65–100
[2022-08-07] MEDS: CHLORDIAZEPOXIDE 25MG CAPSULE PO SCH ×3 (05:58→21:34)
[2022-08-07] MEDS: MORPHINE SULFATE 2 MG/ML CPJ (NOT FOR IM USE) IV PRN (05:58)
[2022-08-07] MEDS: POTASSIUM-SODIUM PHOSPHATE POWDER PACKET PO SCH ×2 (09:33→16:14)
[2022-08-07] MEDS: SODIUM CHLORIDE 0.9% 1,000 ML IV SCH ×2 (09:33→18:22)
[2022-08-07] MEDS: LEVOFLOXACIN 750MG PREMIX 150 ML IV SCH (11:00)
[2022-08-07] MEDS: OXYCODONE HCL/ACETAMINOPHEN 5/325MG TABLET PO PRN ×2 (12:15→21:34)
[2022-08-07 13:11] LABS: BASOPHILS % 0.4 % (0.0-2.0); EOSINOPHILS % 0.3 % (0.0-5.0); HEMATOCRIT. 28.1 % (36.0-48.0); HEMOGLOBIN. 9.5 g/dL (12.0-16.0); LYMPHOCYTES % 31.6 % (20.0-50.0); MEAN CORPUSCULAR HEMOGLOBIN 33.8 pg (28.0-32.0); MEAN CORPUSCULAR VOLUME 100.2 fL (81.0-99.0); MEAN PLATELET VOLUME 7.8 fl (7.4-10.4); MONOCYTES % 7.2 % (2.0-8.0); NEUTROPHILS % 60.5 % (40.0-76.0); PLATELET 139 x1000/uL (130-400); RED BLOOD CELL COUNT 2.81 mill/uL (4.2-5.4); RED CELL DISTRIBUTION WIDTH 16.4 % (11.6-14.6)
[2022-08-07 17:29] LABS: CHLORIDE 101 mEq/L (98-107)
[2022-08-07 17:36] LABS: PHOSPHORUS 1.9 mg/dL (2.5-4.9)
[2022-08-08] VITALS (7 sets, daily range): BP systolic 94–128; BP diastolic 61–86
[2022-08-08] MEDS: MORPHINE SULFATE 2 MG/ML CPJ (NOT FOR IM USE) IV PRN ×3 (01:03→17:29)
[2022-08-08] MEDS: SODIUM CHLORIDE 0.9% 1,000 ML IV SCH ×2 (05:24→15:00)
[2022-08-08] MEDS: CHLORDIAZEPOXIDE 25MG CAPSULE PO SCH ×3 (05:24→22:34)
[2022-08-08] MEDS: LEVOFLOXACIN 750MG PREMIX 150 ML IV SCH ×2 (09:00→15:05)
[2022-08-08] MEDS: POTASSIUM-SODIUM PHOSPHATE POWDER PACKET PO SCH ×2 (09:00→17:23)
[2022-08-08] MEDS: OXYCODONE HCL/ACETAMINOPHEN 5/325MG TABLET PO PRN ×2 (09:01→21:12)
[2022-08-08] MEDS ORDERED: POTASSIUM PHOS,M-BASIC-D-BASIC 30 MMOL in SODIUM CHLORIDE 0.9% 500 ML IV NR (13:00)
[2022-08-08] MEDS ORDERED: MAGNESIUM 2 G PREMIX 50 ML IV NR (13:00)
[2022-08-08 17:33] LABS: BASOPHILS % 1.1 % (0.0-2.0); EOSINOPHILS % 0.7 % (0.0-5.0); HEMATOCRIT. 27.9 % (36.0-48.0); HEMOGLOBIN. 9.3 g/dL (12.0-16.0); LYMPHOCYTES % 47.7 % (20.0-50.0); MEAN CORPUSCULAR HEMOGLOBIN 33.4 pg (28.0-32.0); MEAN CORPUSCULAR VOLUME 100.2 fL (81.0-99.0); MEAN PLATELET VOLUME 8.3 fl (7.4-10.4); MONOCYTES % 9.1 % (2.0-8.0); NEUTROPHILS % 41.4 % (40.0-76.0); PLATELET 145 x1000/uL (130-400); RED BLOOD CELL COUNT 2.79 mill/uL (4.2-5.4); RED CELL DISTRIBUTION WIDTH 16.4 % (11.6-14.6)
[2022-08-08] MEDS: DIPHENHYDRAMINE 50MG/ML VIAL IV PRN (17:34)
[2022-08-08 17:45] LABS: CHLORIDE 103 mEq/L (98-107)
[2022-08-08] MEDS: GABAPENTIN 300MG CAPSULE PO SCH (22:34)
[2022-08-09] VITALS (10 sets, daily range): BP systolic 96–124; BP diastolic 61–86
[2022-08-09] MEDS: MORPHINE SULFATE 2 MG/ML CPJ (NOT FOR IM USE) IV PRN (01:28)
[2022-08-09] MEDS: CHLORDIAZEPOXIDE 25MG CAPSULE PO SCH ×3 (06:21→21:45)
[2022-08-09] MEDS: OXYCODONE HCL/ACETAMINOPHEN 5/325MG TABLET PO PRN ×4 (06:25→21:45)
[2022-08-09] MEDS: GABAPENTIN 300MG CAPSULE PO SCH ×3 (06:30→21:45)
[2022-08-09 07:39] LABS: BASOPHILS % 0.9 % (0.0-2.0); CHLORIDE 103 mEq/L (98-107); HEMATOCRIT. 30.5 % (36.0-48.0); LYMPHOCYTES % 48.4 % (20.0-50.0); MEAN CORPUSCULAR HEMOGLOBIN 33.3 pg (28.0-32.0); MEAN CORPUSCULAR VOLUME 101.7 fL (81.0-99.0); MEAN PLATELET VOLUME 8.5 fl (7.4-10.4); MONOCYTES % 7.4 % (2.0-8.0); NEUTROPHILS % 42.3 % (40.0-76.0); PLATELET 185 x1000/uL (130-400); RED CELL DISTRIBUTION WIDTH 16.2 % (11.6-14.6)
[2022-08-09 07:47] LABS: PHOSPHORUS 3.8 mg/dL (2.5-4.9)
[2022-08-09] MEDS: POTASSIUM-SODIUM PHOSPHATE POWDER PACKET PO SCH ×2 (09:34→17:32)
[2022-08-09] MEDS: DIPHENHYDRAMINE 50MG/ML VIAL IV PRN (21:44)
[2022-08-10] VITALS: BP 117/76
[2022-08-10] MEDS: MORPHINE SULFATE 2 MG/ML CPJ (NOT FOR IM USE) IV PRN (03:14)
[2022-08-10 04:00] VITALS: BP 103/52
[2022-08-10] MEDS: CHLORDIAZEPOXIDE 25MG CAPSULE PO SCH (06:18)
[2022-08-10] MEDS: GABAPENTIN 300MG CAPSULE PO SCH (06:18)
[2022-08-10 06:44] LABS: BASOPHILS % 0.6 % (0.0-2.0); EOSINOPHILS % 1.1 % (0.0-5.0); HEMATOCRIT. 28.7 % (36.0-48.0); HEMOGLOBIN. 9.5 g/dL (12.0-16.0); LYMPHOCYTES % 41.7 % (20.0-50.0); MEAN CORPUSCULAR HEMOGLOBIN 33.8 pg (28.0-32.0); MEAN CORPUSCULAR VOLUME 101.7 fL (81.0-99.0); MEAN PLATELET VOLUME 8.2 fl (7.4-10.4); MONOCYTES % 10.6 % (2.0-8.0); PLATELET 168 x1000/uL (130-400); RED BLOOD CELL COUNT 2.82 mill/uL (4.2-5.4); RED CELL DISTRIBUTION WIDTH 16.2 % (11.6-14.6)
[2022-08-10 08:00] VITALS: BP 87/57
[2022-08-10] MEDS: POTASSIUM-SODIUM PHOSPHATE POWDER PACKET PO SCH (08:36)
[2022-08-10] MEDS: OXYCODONE HCL/ACETAMINOPHEN 5/325MG TABLET PO PRN (08:37)
[2022-08-10] MEDS ORDERED: GABA-532 PO (09:49)
[2022-08-10] MEDS: LEVOFLOXACIN 750MG PREMIX 150 ML IV SCH (11:00)
[2022-08-10 11:01] LABS: CHLORIDE 103 mEq/L (98-107)
[2022-08-10 11:16] VITALS: BP 87/53
== END 2022-08-10 11:30 | disposition home or self-care (01) | DRG 425 ==
LOC: ER 15:29 → 5EST 23:33
PROVIDERS: ADMIT Internal Medicine; ATTEND Internal Medicine
DX: E87.29 Other acidosis (principal); D72.829 Elevated white blood cell count, unspecified; F10.129 Alcohol abuse with intoxication, unspecified; Z20.822 Contact with and (suspected) exposure to COVID-19; F17.200 Nicotine dependence, unspecified, uncomplicated; Z88.0 Allergy status to penicillin; Z82.49 Family history of ischemic heart disease and other diseases of the circulatory system; Y90.6 Blood alcohol level of 120-199 mg/100 ml
CPT/HCPCS: 36415; 36600; 71045; 71275; 80048; 80053; 80305; 80320; 81003; 82010; 82375; 82805; 83605; 83735; 84100; 84703; 85025; 85379; 87426; 87804; 93005; 93970; 99291; C1893; C9803; J1200; J1956; J2270; J2405; J3411; J3475; J3490; J7030; J7040; J7060; J7070; Q9967; G0480

== ENCOUNTER 2023-09-24 15:10 | Emergency (ER) | payer MEDICAID, OTHER ==
[~2023-09-24] VITALS: Ht 170.2 cm; Wt 72.0 kg
[~2023-09-24 15:10] MED LIST: GABA-532 PO
[2023-09-24 15:21] VITALS: BP 141/96; PULSE 93; RESP 20; TEMP 98.4; O2SAT 98
== END 2023-09-24 16:17 ==
LOC: ER 15:23
DX: R09.89 Other specified symptoms and signs involving the circulatory and respiratory systems (principal); Z53.21 Procedure and treatment not carried out due to patient leaving prior to being seen by health care provider
CPT/HCPCS: 99281

== ENCOUNTER 2023-10-07 05:42 | Emergency (ER) | payer MEDICAID ==
[~2023-10-07] VITALS: Ht 167.6 cm; Wt 59.0 kg
[2023-10-07] MEDS ORDERED: KETOROLAC 60MG/2ML VIAL IM ONE (06:00)
[2023-10-07 06:03] VITALS: O2SAT 98
[2023-10-07] MEDS ORDERED: OXYCODONE HCL/ACETAMINOPHEN 5/325MG TABLET PO ONE (08:45)
[2023-10-07] MEDS ORDERED: IBUP-2028 PO (09:46)
[2023-10-07] MEDS ORDERED: MORPHINE SULFATE 10 MG/ML CPJ IM ONE (10:00)
[2023-10-07 10:56] VITALS: BP 126/75; PULSE 99; RESP 16; TEMP 98.9
== END 2023-10-07 10:57 | disposition home or self-care (01) ==
LOC: ER 05:42
DX: S42.301A Unspecified fracture of shaft of humerus, right arm, initial encounter for closed fracture (principal); J44.1 Chronic obstructive pulmonary disease with (acute) exacerbation; Z88.0 Allergy status to penicillin; W18.30XA Fall on same level, unspecified, initial encounter; Y93.89 Activity, other specified; Y92.89 Other specified places as the place of occurrence of the external cause; Y99.8 Other external cause status
CPT/HCPCS: 81025; 73060; 73090; 29105; 96372; 99284; J1885; J2270; Z7610 ×3; A4565

== ENCOUNTER 2024-06-03 16:48 | Emergency (ER) | payer MEDICAID ==
[~2024-06-03] VITALS: Ht 165.1 cm; Wt 73.0 kg
[~2024-06-03 16:48] MED LIST changes: +IBUP-2028 PO
[2024-06-03 16:51] VITALS: O2SAT 99
[2024-06-03] MEDS: HALOPERIDOL LACTATE 5MG/ML VIAL IM STA (17:13)
[2024-06-03] MEDS: LORAZEPAM 2MG/ML INJ IM STA (17:13)
[2024-06-03] MEDS: TETANUS, DIPHTHERIA, PERTUSSIS VAC/PF 0.5ML (>10YR OLD) IM ONE (17:13)
[2024-06-03] MEDS: DIPHENHYDRAMINE 50MG/ML VIAL IM STA (17:13)
[2024-06-03] MEDS: LIDOCAINE HCL 1% 20ML VIAL INFIL ONE (17:15)
[2024-06-03 18:24] VITALS: BP 156/112; PULSE 132; RESP 18; TEMP 36.89184; O2SAT 99
== END 2024-06-03 19:10 ==
LOC: ER 16:48
DX: S61.217A Laceration without foreign body of left little finger without damage to nail, initial encounter (principal); F15.10 Other stimulant abuse, uncomplicated; Z88.0 Allergy status to penicillin; Z79.1 Long term (current) use of non-steroidal anti-inflammatories (NSAID)
CPT/HCPCS: 99291; 90715; 12002; 90471; 96372; J1200; J1630; J3490; J2060

== ENCOUNTER 2024-07-08 21:02 | Emergency (ER) | payer SELFPAY ==
[~2024-07-08] VITALS: Ht 165.1 cm; Wt 72.0 kg
[2024-07-08 21:16] VITALS: BP 128/74; PULSE 89; TEMP 98.6; O2SAT 97
[2024-07-08 22:00] VITALS: RESP 20
[2024-07-08] MEDS: ACETAMINOPHEN 325MG TABLET PO ONE (22:00)
[2024-07-09] MEDS ORDERED: DOXY100T28 MT (05:19)
[2024-07-09] MEDS ORDERED: IBUP-2029 MT (05:19)
== END 2024-07-08 22:05 | disposition home or self-care (01) ==
LOC: EDBD → ER 21:02
DX: M25.572 Pain in left ankle and joints of left foot (principal); F20.9 Schizophrenia, unspecified; J44.9 Chronic obstructive pulmonary disease, unspecified; J45.909 Unspecified asthma, uncomplicated; Z79.1 Long term (current) use of non-steroidal anti-inflammatories (NSAID); Z88.0 Allergy status to penicillin
CPT/HCPCS: 81025; 99283

== ENCOUNTER 2024-07-08 22:25 | Emergency (ER) | payer MEDICAID ==
[~2024-07-08] VITALS: Ht 167.6 cm; Wt 64.0 kg
[2024-07-08 22:33] VITALS: BP 144/65; PULSE 87; RESP 16; TEMP 98.7; O2SAT 99
[2024-07-08] MEDS ORDERED: ACETAMINOPHEN 325MG TABLET PO ONE (23:15)
[2024-07-09] MEDS ORDERED: IBUP-2029 MT (05:19)
[2024-07-09] MEDS ORDERED: DOXY100T28 MT (05:19)
== END 2024-07-08 23:19 | disposition left against medical advice (07) ==
LOC: ER 22:25
DX: M25.572 Pain in left ankle and joints of left foot (principal); F20.9 Schizophrenia, unspecified; J44.9 Chronic obstructive pulmonary disease, unspecified; Z79.1 Long term (current) use of non-steroidal anti-inflammatories (NSAID); Z88.0 Allergy status to penicillin
CPT/HCPCS: 99281

== ENCOUNTER 2024-07-08 23:56 | Emergency (ER) | payer MEDICAID ==
[~2024-07-08] VITALS: Ht 154.9 cm; Wt 64.0 kg
[2024-07-08 23:57] VITALS: O2SAT 99
[2024-07-09 00:02] VITALS: BP 144/64; PULSE 92; RESP 18; TEMP 98.8; O2SAT 99
[2024-07-09] MEDS ORDERED: DOXY100T28 MT (05:19)
[2024-07-09] MEDS ORDERED: IBUP-2029 MT (05:19)
== END 2024-07-09 01:33 | disposition home or self-care (01) ==
LOC: ER 23:56
DX: M25.572 Pain in left ankle and joints of left foot (principal); F20.9 Schizophrenia, unspecified; J44.9 Chronic obstructive pulmonary disease, unspecified; Z79.1 Long term (current) use of non-steroidal anti-inflammatories (NSAID); Z88.0 Allergy status to penicillin
CPT/HCPCS: 73600; 99283

== ENCOUNTER 2024-07-09 02:57 | Emergency (ER) | payer MEDICAID ==
[~2024-07-09] VITALS: Ht 162.6 cm; Wt 70.0 kg
[2024-07-09 03:09] VITALS: TEMP 98.1; O2SAT 99
[2024-07-09 04:37] VITALS: BP 140/84; PULSE 100; RESP 16
[2024-07-09] MEDS: IBUPROFEN 600MG TABLET PO ONE (04:37)
[2024-07-09] MEDS: TRAMADOL 50MG TABLET PO ONE (04:37)
[2024-07-09] MEDS ORDERED: IBUP-2029 MT (05:19)
[2024-07-09] MEDS ORDERED: DOXY100T28 MT (05:19)
== END 2024-07-09 05:58 | disposition home or self-care (01) ==
LOC: ER 02:57
DX: L03.116 Cellulitis of left lower limb (principal); J44.89 Other specified chronic obstructive pulmonary disease; F20.9 Schizophrenia, unspecified; Z88.0 Allergy status to penicillin
CPT/HCPCS: 29515; 99283; Z7610

== ENCOUNTER 2024-07-09 06:21 | Emergency (ER) | payer MEDICAID ==
[~2024-07-09 06:21] MED LIST changes: +DOXY100T28 MT; +IBUP-2029 MT
== END 2024-07-09 07:02 | disposition left against medical advice (07) ==
LOC: ER 06:21
DX: R10.9 Unspecified abdominal pain (principal); Z53.21 Procedure and treatment not carried out due to patient leaving prior to being seen by health care provider